=== PATIENT | female | born 1935 | race Caucasian/White ===

== ENCOUNTER 2019-07-29 22:34 | Emergency (ER) | payer MEDICARE ==
[2019-07-29 22:36] VITALS: TEMP 97.8
[2019-07-29] MEDS ORDERED: SEROQUEL 2525 MG/TAB PO (23:10)
[2019-07-29] MEDS ORDERED: CELEXA 20MG20 MG/TAB PO (23:11)
[2019-07-29] MEDS ORDERED: PRILOSEC 20MG20 MG PO (23:11)
[2019-07-29] MEDS ORDERED: ATIVAN 0.50.5 MG/TAB PO (23:13)
[2019-07-29 23:20] LABS: BASO % 0.3 % (0.0-2.0); EOS # 0.1 (0.0-0.7); EOS % 1.3 % (0-4.0); GRAN # 5.6 (1.4-6.5); GRAN % 64.7 % (42.2-75.2); LYMPH # 1.9 (1.2-3.4); LYMPH % 21.6 % (20.0-51.0); MEAN CELL VOLUME 92 fl (80.0-100.0); MEAN CORPUSCULAR HEMOGLOBIN 29 pg (27.0-31.0); MEAN CORPUSCULAR HGB CONC 32 g/dl (33.0-37.0); MEAN PLATELET VOLUME 10.8 fl (7.4-10.4); MONO % 11.2 % (1.7-9.3); PLATELET COUNT 364 K/mm3 (130-400); RED BLOOD COUNT 4.12 M/mm3 (4.10-5.30); REDCELL DISTRIBUTION WIDTH-CV 12.4 % (11.5-14.5)
[2019-07-29 23:26] LABS: BILIRUBIN,TOTAL 0.3 mg/dL (0.0-1.0); CALCIUM 9.3 mg/dL (8.4-10.2); CREATININE, serum 0.72 (0.52-1.25); POTASSIUM 4.1 mmol/L (3.4-5.0); TOTAL PROTEIN 7.3 gm/dL (6.4-8.2)
[2019-07-29] MEDS ORDERED: ARICEPT 5MG PO (23:42)
[2019-07-29] MEDS ORDERED: REMERON 15M15 MG/TA1 PO (23:42)
[2019-07-29] MEDS ORDERED: BENADRYL50 MG PO (23:43)
[2019-07-30] MEDS ORDERED: NORCO 325 MG-51 TAB PO (00:18)
[2019-07-30 02:15] VITALS: BP 163/86; PULSE 82
== END 2019-07-30 02:15 | disposition home or self-care (01) ==
LOC: COL.ER 22:34 → EDBD 22:36 → COL.ER 07-30 02:15
PROVIDERS: Emergency Medicine
DX: S42.201A Unspecified fracture of upper end of right humerus, initial encounter for closed fracture (principal); S52.501A Unspecified fracture of the lower end of right radius, initial encounter for closed fracture; F03.90 Unspecified dementia, unspecified severity, without behavioral disturbance, psychotic disturbance, mood disturbance, and anxiety; Z23 Encounter for immunization; W19.XXXA Unspecified fall, initial encounter; Y92.129 Unspecified place in nursing home as the place of occurrence of the external cause
CPT/HCPCS: J2270

== ENCOUNTER → 2019-08-11 | Outpatient (CLI) | payer MEDICARE ==
[~2019-08-11] MED LIST: ARICEPT 5MG PO; ATIVAN 0.50.5 MG/TAB PO; BENADRYL50 MG PO; CELEXA 20MG20 MG/TAB PO; NORCO 325 MG-51 TAB PO; PRILOSEC 20MG20 MG PO; REMERON 15M15 MG/TA1 PO; SEROQUEL 2525 MG/TAB PO
== END ==
LOC: BHSO 10:44
DX: Z01.818 Encounter for other preprocedural examination (principal)

== ENCOUNTER → 2019-09-13 | Outpatient (CLI) | payer MEDICARE | LOC: BHSO 13:09 | DX: F06.32 Mood disorder due to known physiological condition with major depressive-like episode (principal) | CPT/HCPCS: G0463 ==

== ENCOUNTER → 2019-11-14 | Outpatient (CLI) | payer MEDICARE | LOC: BHSO 13:56 | DX: F33.41 Major depressive disorder, recurrent, in partial remission (principal) | CPT/HCPCS: G0463 ==